=== PATIENT | male | born 1990 | race Caucasian/White ===

== ENCOUNTER 2017-09-26 20:03 | Emergency (ER) | payer OTHER ==
[2017-09-26] MEDS ORDERED: Oxymetazoline 0.05% NASAL SPR* 15 ML BTL RIGHT NARE ONE (20:45)
--- NOTE | 2017-09-26 20:45 | ED ---
Throat Pain/Nasal Congestion - HPI Summary HPI Summary: 27 male presents nosebleed for the the past hour. He was coming on his right nostril now is from both. He has history of nosebleeds but has not had one in ten years. He normally gets nosebleeds with pressure changes with the weather. He is not on blood thinners. No injury. got some blood in throat. No chest pain or shortness breath. Has no medical conditions. - History of Current Complaint Chief Complaint: EDEpistaxis Time Seen by Provider: 09/26/17 20:29 - Allergies/Home Medications Allergies/Adverse Reactions: Allergies Allergy/AdvReac Type Severity Reaction Status Date / Time No Known Allergies Allergy Verified 09/26/17 20:11 PMH/Surg Hx/FS Hx/Imm Hx Endocrine/Hematology History: Denies: Hx Anticoagulant Therapy Cardiovascular History: Denies: Hx Myocardial Infarction - Immunization History Immunizations Up to Date: Yes Infectious Disease History: No Infectious Disease History: Denies: Traveled Outside the [place] in Last 30 Days - Family History Known Family History: Negative: Blood Disorder - Social History Alcohol Use: Rare Substance Use Type: Reports: None Smoking Status (MU): Never Smoked Tobacco Review of Systems Negative: Fever Positive: Epistaxis Negative: Chest Pain Negative: Shortness Of Breath All Other Systems Reviewed And Are Negative: Yes Physical Exam Triage Information Reviewed: Yes Vital Signs On Initial Exam: Initial Vitals Temp Pulse Resp BP Pulse Ox 98 F 74 15 128/83 98 09/26/17 20:11 09/26/17 20:11 09/26/17 20:11 09/26/17 20:11 09/26/17 20:11 Vital Signs Reviewed: Yes Appearance: Positive: Well-Appearing Skin: Positive: Warm, Dry Head/Face: Positive: Normal Head/Face Inspection Eyes: Positive: Normal, Conjunctiva Clear ENT: Positive: Pharynx normal, TMs normal, Other - blood in right nares Respiratory/Lung Sounds: Positive: Clear to Auscultation, Breath Sounds Present Cardiovascular: Positive: Normal, RRR Musculoskeletal: Positive: Normal Neurological: Positive: Normal Psychiatric: Positive: Normal Diagnostics - Vital Signs Vital Signs Temp Pulse Resp BP Pulse Ox 09/26/17 20:11 98 F 74 15 128/83 98 - Laboratory Lab Statement: Any lab studies that have been ordered have been reviewed, and results considered in the medical decision making process. Re-Evaluation - Re-Evaluation First Eval Re-Evaluation Time: 22:19 Change: Improved Comment: no active bleeding, muscous nasal irritated EENT Course/Dx - Course Course Of Treatment: 27 male presents nosebleed for the the past hour. He was coming on his right nostril now is from both. He has history of nosebleeds but has not had one in ten years. He normally gets nosebleeds with pressure changes with the weather. He is not on blood thinners. No injury. got some blood in throat. No chest pain or shortness breath. Has no medical conditions. On exam has blood coming out right naris. had place compression and went to check on the patient and no bleeding after an hour. Area of irritation seen. discussed with patient will not cauterize. told to keep area moist. patient understand and agrees with plan. - Differential Diagnoses Differential Diagnoses: Allergic Rhinitis, Epistaxis, Sinusitis - Diagnoses Provider Diagnoses: Epistaxis Discharge - Sign-Out/Discharge Documenting (check all that apply): Patient Departure - Discharge Plan Condition: Good Disposition: HOME Patient Education Materials: Nosebleed (ED) Referrals: [facility] [place] [facility] [Outside] Additional Instructions: place saline in nose Establish care with primary if nose bleed returns can use afrin two sprays in nostril, place ice on area Return to ED if develop any new or woorsneing symptoms - Billing Disposition and Condition Condition: GOOD Disposition: Home
[2017-09-26 22:45] VITALS: BP 120/71
== END 2017-09-26 22:44 | disposition home or self-care (01) ==
LOC: ED 20:03
DX: R04.0 Epistaxis (principal)
CPT/HCPCS: 99281

== ENCOUNTER 2018-08-09 22:40 | Emergency (ER) | payer MEDICAID, OTHER ==
--- NOTE | 2018-08-09 23:09 | ED ---
Abdominal Pain/Male - HPI Summary HPI Summary: 28 yo male presents to [facility] [place] [facility] ED accompanied by his mother. Pt tells me that around 2100 tonight he developed RLQ pain, nausea, and vomiting. Since that time pain has gotten much worse. He last ate dinner around 1730 this evening and reports feeling well until this evening. His mother has a prescription for Zofran and tried to give him one of those, but pt vomited directly after. Last BM was this morning and was normal for him. No surgeries on abdomen. Deniex fever, chills, SOB, chest pain, dysuria, hematuria. Denies PMHx and does not take any medications. Denies illicit drug use. States that father has a "bad history" of kidney stones. - History of Current Complaint Chief Complaint: EDFlankPain Stated Complaint: VOMITING, ABD PAIN PER PT Time Seen by Provider: 08/09/18 23:09 Hx Obtained From: Patient, Family/Construction [employer] Onset/Duration: Sudden Onset Timing: Constant Severity Initially: Moderate Severity Currently: Severe Pain Intensity: 10 Pain Scale Used: 0-10 Numeric - Allergies/Home Medications Allergies/Adverse Reactions: Allergies Allergy/AdvReac Type Severity Reaction Status Date / Time No Known Allergies Allergy Verified 08/09/18 22:55 PMH/Surg Hx/FS Hx/Imm Hx Endocrine/Hematology History: Denies: Hx Anticoagulant Therapy, Hx Anemia Cardiovascular History: Denies: Hx Myocardial Infarction GI History: Denies: Hx Diverticulosis, Hx Gall Bladder Disease, Hx Obstructive Bowel Neurological History: Denies: Hx Headaches, Hx Migraine Psychiatric History: Denies: Hx Anxiety, Hx Autism Infectious Disease History: No Infectious Disease History: Denies: Traveled Outside the [place] in Last 30 Days - Family History Known Family History: Negative: Blood Disorder - Social History Occupation: Employed Full-time Lives: With Family Alcohol Use: Rare Substance Use Type: Reports: None Smoking Status (MU): Never Smoked Tobacco Review of Systems Constitutional: Negative Cardiovascular: Negative Respiratory: Negative Positive: Abdominal Pain, Vomiting, Nausea Genitourinary: Negative Musculoskeletal: Negative Skin: Negative Neurological: Negative Psychological: Normal All Other Systems Reviewed And Are Negative: Yes Physical Exam - Summary Physical Exam Summary: GENERAL: Mild pain distress. SKIN: No rashes, sores, lesions, or open wounds. NECK: Supple. Nontender. No lymphadenopathy. CHEST: CTAB. No r/r/w. No accessory muscle use. Breathing comfortably and in no distress. CV: RRR. Without m/r/g. Pulses intact. Cap refill <2seconds ABDOMEN: Moderate TTP RLQ at mcburney's point with guarding. Positive rovsing's and psoas sign. No distention. No CVA tenderness. Bowel sounds present NEURO: Alert. PSYCH: Age appropriate behavior. Triage Information Reviewed: Yes Vital Signs On Initial Exam: Initial Vitals Temp Pulse Resp BP Pulse Ox 97.5 F 63 16 135/91 97 08/09/18 22:50 08/09/18 22:50 08/09/18 22:50 08/09/18 22:50 08/09/18 22:50 Vital Signs Reviewed: Yes Diagnostics - Vital Signs Vital Signs Temp Pulse Resp BP Pulse Ox 08/09/18 22:50 97.5 F 63 16 135/91 97 - Laboratory Lab Results: Laboratory Tests 08/09/18 08/09/18 08/09/18 23:07 23:07 23:07 WBC 12.0 H RBC 4.59 Hgb 14.5 Hct 42 MCV 92 MCH 32 H MCHC 34 RDW 13 Plt Count 215 MPV 8.8 Neut % (Auto) 62.3 Lymph % (Auto) 24.6 [place] % (Auto) 8.3 Eos % (Auto) 4.3 Baso % (Auto) 0.5 Absolute Neuts (auto) 7.5 Absolute Lymphs (auto) 2.9 Absolute Monos (auto) 1.0 H Absolute Eos (auto) 0.5 Absolute Basos (auto) 0.1 Absolute Nucleated RBC 0.0 Nucleated RBC % 0.0 Sodium 141 Potassium 4.0 Chloride 106 Carbon Dioxide 26 Anion Gap 9 BUN 10 Creatinine 1.01 Est GFR ( Amer) 108.0 Est GFR (Non-Af Amer) 89.3 BUN/Creatinine Ratio 9.9 Glucose 122 H Lactic Acid 1.5 Calcium 9.7 Total Bilirubin 1.20 H AST 38 ALT 50 Alkaline Phosphatase 70 Total Protein 7.2 Albumin 5.0 Globulin 2.2 Albumin/Globulin Ratio 2.3 Lipase 41 Urine WBC (Auto) Urine RBC (Auto) Urine Bacteria 08/10/18 02:00 WBC RBC Hgb Hct MCV MCH MCHC RDW Plt Count MPV Neut % (Auto) Lymph % (Auto) [place] % (Auto) Eos % (Auto) Baso % (Auto) Absolute Neuts (auto) Absolute Lymphs (auto) Absolute Monos (auto) Absolute Eos (auto) Absolute Basos (auto) Absolute Nucleated RBC Nucleated RBC % Sodium Potassium Chloride Carbon Dioxide Anion Gap BUN Creatinine Est GFR ( Amer) Est GFR (Non-Af Amer) BUN/Creatinine Ratio Glucose Lactic Acid Calcium Total Bilirubin AST ALT Alkaline Phosphatase Total Protein Albumin Globulin Albumin/Globulin Ratio Lipase Urine WBC (Auto) Absent Urine RBC (Auto) 3+(>10/hpf) A Urine Bacteria Absent Result Diagrams: 08/09/18 23:07 08/09/18 23:07 Lab Statement: Any lab studies that have been ordered have been reviewed, and results considered in the medical decision making process. Re-Evaluation - Re-Evaluation First Eval Re-Evaluation Time: 00:27 Change: Improved Comment: Slight improvement of pain, but still 8/10 and significant pain with turning side to side in RLQ Second Eval Re-Evaluation Time: 01:31 Change: Improved Comment: Pt sleeping. Family updated with results Abdominal Pain Male Course/Dx - Course Course Of Treatment: Suspicion for appendicitis vs renal calculi. Will order for CT to eval. FINDINGS: Mediastinum: Minimal hiatal hernia. ABDOMEN: Liver : Normal. No mass. Gallbladder and bile ducts: Normal. No calcified stones. No ductal dilation. Pancreas: Normal. No ductal dilation. Spleen: Normal. No splenomegaly. Adrenals: Normal. No mass. Kidneys and ureters: Right perinephric induration with mild right. hydronephrosis and hydroureter with periureteral edema which extends to a right. UVJ calculus measuring 2 x 2 x 3 mm. Stomach and bowel: Normal. No obstruction. No mucosal thickening. Appendix : A normal appendix is seen. PELVIS: Bladder: Unremarkable as visualized. Reproductive: Calcification of the seminal vesicles bilaterally. The. appearance is not tubular to suggest vas deferens. ABDOMEN and PELVIS: Intraperitoneal space: Normal. No free air. No significant fluid collection. Bones/joints: No acute fracture. No dislocation. Soft tissues: Minimal fat filled umbilical hernia. Vasculature: Normal. No abdominal aortic aneurysm. Lymph nodes: Normal. No enlarged lymph nodes. IMPRESSION: 1. Right UVJ calculus measuring 2 x 2 x 3 mm with secondary obstructive. uropathy of the right upper tract. 2. Minimal hiatal hernia. 3. Otherwise negative CT abdomen/ pelvis. In the ED pt was given morphine, zofran, NS, and toradol for his symptoms. Discussed case with Dr. Stoner given mild leukocytosis and mild hydronephrosis/secondary obstructive uropathy and he recommends outpt treatment with flomax, pain medicine, and fluids with f/u Urology. No need to consult Urology in the ED. Pt has remained afebrile and pain is better controlled s/p toradol and morphine. UA with no WBC or bacteria noted. Will dc with flomax, norco, and bactrim. Advised for pt to strain urine and drink plenty of clear fluids and f/u with Urology next week. - Diagnoses Provider Diagnoses: Urinary calculi Discharge - Sign-Out/Discharge Documenting (check all that apply): Patient Departure Patient Received Moderate/Deep Sedation with Procedure: No - Discharge Plan Condition: Stable Disposition: HOME Prescriptions: Hydrocodone/Acetaminophen [[place] 5-325 Tablet] 1 each PO Q6H PRN #12 tablet MDD 4 PRN Reason: Pain Sulfamethox/Trimethoprim DS* [Bactrim DS 800/160 TAB*] 1 tab PO BID #10 tab Tamsulosin HCl [Flomax] 0.4 mg PO DAILY #7 cap.er.24h Patient Education Materials: Kidney Stones (ED), How to Strain Your Urine (ED) Forms: *Work Release Referrals: No Primary Care Phys,NOPCP [Primary Care Provider] - Arpit Allen MD [Medical Doctor] - As Soon As Possible Additional Instructions: If you develop a fever, shortness of breath, chest pain, new or worsening symptoms - please call your PCP or go to the ED immediately. Your blood pressure was high at todays visit. Please see your primary provider within 4 weeks for recheck and re-evaluation. 1) Drink plenty of water and clear fluids! 2) Take your pain medications and antibiotics as prescribed 3) Please call Urology at the number below to schedule an appointment for next week for a recheck - Billing Disposition and Condition Condition: STABLE Disposition: Home
[2018-08-09 23:20] LABS: ABS Basophils 0.1 10^3/ul (0-0.2); ABS Eosinophils 0.5 10^3/ul (0-0.6); ABS Lymphocytes 2.9 10^3/ul (1.0-4.8); ABS Neutrophils 7.5 10^3/ul (1.5-7.7); Eosinophil % 4.3 %; Hematocrit 42 % (42-52); Hemoglobin 14.5 g/dL (14.0-18.0); Lymphocyte % 24.6 %; Mean Corpuscular HGB Conc 34 g/dL (31-36); Mean Corpuscular Hemoglobin 32 pg (27-31); Mean Corpuscular Volume 92 fL (80-94); Mean Platelet Volume 8.8 fL (7.4-10.4); Platelet Count 215 10^3/uL (150-450); Red Blood Count 4.59 10^6 /uL (4.18-5.48); Red Cell Distribution Width 13 % (10.5-15)
[2018-08-09 23:34] LABS: Albumin/Globulin Ratio 2.3 (1-3); BUN/Creatinine Ratio 9.9 (8-20); Calcium 9.7 mg/dL (8.6-10.3); EGFR Non-African American 89.3 (>60); Globulin 2.2 g/dL (2-4); Total Bilirubin 1.2 mg/dL (0.2-1.0); Total Protein 7.2 g/dL (6.4-8.9)
[2018-08-09] MEDS ORDERED: NS 0.9% 1000 ML** 1,000 ML IV ONE (23:34)
[2018-08-09] MEDS ORDERED: Morphine 4 MG/ML VIAL (1 ml) 4 MG/ML VIAL IV ONE (23:34)
[2018-08-09] MEDS ORDERED: Ondansetron INJ* 2 MG/ML VIAL IV ONE (23:35)
[2018-08-10] MEDS ORDERED: Ketorolac INJ* 30 MG/ML 1 ML VIAL IV PUSH ONE (00:25)
[2018-08-10] MEDS ORDERED: HYDROcodone/ACETAMIN 5-325 MG* 1 TAB PO ONE ×2 (01:30→02:05)
[2018-08-10 02:36] LABS: Urine Bacteria Absent (Absent); Urine Red Blood Cell 3+(>10/hpf) (Absent); Urine White Blood Cell Absent (Absent)
[2018-08-10 03:02] LABS: Urine Appearance Cloudy; Urine Bilirubin Negative (Negative); Urine Blood 3+ (Negative); Urine Color Amber; Urine Glucose Negative (Negative); Urine Ketones Trace (Negative); Urine Nitrite Negative (Negative); Urine Protein 2+(100 mg/dL) (Negative); Urine Urobilinogen Negative (Negative)
[2018-08-10 03:08] VITALS: BP 99/42
== END 2018-08-10 02:38 | disposition home or self-care (01) ==
LOC: ED 22:40
DX: N20.9 Urinary calculus, unspecified (principal); R11.2 Nausea with vomiting, unspecified; R10.9 Unspecified abdominal pain
CPT/HCPCS: 36415; 74176; 80053; 81003; 81015; 83605; 83690; 85025; 96374; 96375; 99283; J2270; J2405